=== PATIENT | female | born 1955 | race African-American/Black ===

== ENCOUNTER 2017-07-06 15:29 | Inpatient (IN) | payer MEDICAID, MEDICARE ==
[~2017-07-06] VITALS: Ht 165.1 cm; Wt 129.8 kg
[~2017-07-06 15:29] MED LIST: ATEN-42 PO; CLON0.3T PO; DICL75TA5 PO; FURO40TA5 PO; GLIM2TAB2 PO; HYDR-4134 PO; HYDR-519 PO; ISOS60TA4 PO; LOSA25TA12 PO; OMEP20TA2 PO; OXYC30TA89 PO; SIMV20TA6 PO
[2017-07-06] MEDS ORDERED: KETOROLAC 30MG/ML VIAL IV STA (16:56)
[2017-07-06 17:48] LABS: BASOPHILS % 0.9 % (0.0-2.0); EOSINOPHILS % 1.4 % (0.0-5.0); HEMATOCRIT. 30.5 % (36.0-48.0); LYMPHOCYTES % 18.5 % (20.0-50.0); MEAN CORPUSCULAR HEMOGLOBIN 28.3 pg (28.0-32.0); MEAN CORPUSCULAR VOLUME 86.7 fL (81.0-99.0); MEAN PLATELET VOLUME 8.3 fl (7.4-10.4); MONOCYTES % 7.4 % (2.0-8.0); NEUTROPHILS % 71.8 % (40.0-76.0); PLATELET 368 x1000/uL (130-400); RED BLOOD CELL COUNT 3.52 mill/uL (4.2-5.4); RED CELL DISTRIBUTION WIDTH 16.2 % (11.6-14.6)
[2017-07-06 17:51] LABS: CHLORIDE 103 mEq/L (98-107)
[2017-07-06 17:53] LABS: CARBON DIOXIDE 27 mEq/L (21-32)
[2017-07-06 17:54] LABS: PARTIAL THROMBOPLASTIN TIME 34.3 sec (23.4-31.0); PROTHROMBIN TIME 10.8 sec (9.4-11.6)
[2017-07-06 18:28] LABS: CLARITY URINE CLOUDY (CLEAR); COLOR URINE YELLOW (YELLOW); GLUCOSE URINE NEGATIVE (NEGATIVE); KETONES URINE NEGATIVE (NEGATIVE); LEUKOCYTE ESTERASE URINE NEGATIVE (NEGATIVE); NITRITE URINE NEGATIVE (NEGATIVE); OCCULT BLOOD URINE TRACE (NEGATIVE); PROTEIN URINE 3+ (NEGATIVE); SPECIFIC GRAVITY URINE 1.015 (1.005-1.030); UROBILINOGEN URINE 0.2 E.U./dL (0.2-1.0)
[2017-07-06] MEDS ORDERED: CLONIDINE 0.3MG TABLET PO ONE (19:45)
[2017-07-06] MEDS ORDERED: LISINOPRIL 40MG TABLET PO SCH (20:15)
[2017-07-06] MEDS ORDERED: ENOXAPARIN 40MG/0.4ML SYR SUBCUT SCH (20:15)
[2017-07-06] MEDS ORDERED: LORAZEPAM 2MG/ML CPJ IV PRN (20:15)
[2017-07-06] MEDS ORDERED: CLONIDINE 0.1MG TABLET PO PRN (20:15)
[2017-07-06] MEDS ORDERED: DICLOFENAC SODIUM 75MG DR (EC) TABLET PO PRN (20:15)
[2017-07-06] MEDS ORDERED: ONDANSETRON HCL 4MG/2ML VIAL IV PRN (20:15)
[2017-07-06] MEDS ORDERED: MORPHINE SULFATE 4 MG/ML CPJ (NOT FOR IM USE) IV PRN (20:15)
[2017-07-06] MEDS ORDERED: CLONIDINE 0.1MG TABLET PO ONE (20:15)
[2017-07-06] MEDS ORDERED: ACETAMINOPHEN 325MG TABLET PO PRN (20:15)
[2017-07-06] MEDS: HYDROCODONE/ACETAMINOPHEN 5/325MG TABLET PO PRN (20:22)
[2017-07-06 20:27] LABS: *AMPHETAMINES SCREEN URINE NEGATIVE (NEGATIVE); *BARBITURATES SCREEN URINE NEGATIVE (NEGATIVE); *BENZODIAZEPINES SCREEN URINE NEGATIVE (NEGATIVE); *COCAINE SCREEN URINE NEGATIVE (NEGATIVE); CANNABINOID URINE SCREEN NEGATIVE (NEGATIVE); METHADONE URINE SCREEN NEGATIVE (NEGATIVE); OPIATES URINE SCREEN PRESUMTIVE POSITIVE (NEGATIVE); PHENCYCLIDINE URINE SCREEN NEGATIVE (NEGATIVE)
[2017-07-07] VITALS (7 sets, daily range): BP systolic 158–189; BP diastolic 74–89
[2017-07-07] MEDS: ATENOLOL 50 MG TABLET PO SCH ×3 (00:48→21:24)
[2017-07-07] MEDS: ATORVASTATIN CALCIUM 20MG TABLET PO SCH ×2 (00:48→21:24)
[2017-07-07] MEDS ORDERED: LEVOFLOXACIN 500MG PREMIX 100 ML IV NR (03:00)
[2017-07-07] MEDS: CLONIDINE 0.3MG TABLET PO SCH ×3 (05:31→21:25)
[2017-07-07] MEDS: GLIMEPIRIDE 4MG TABLET PO SCH (08:26)
[2017-07-07] MEDS ORDERED: COLCHICINE 0.6MG TABLET PO SCH ×2 (09:00→16:04)
[2017-07-07] MEDS: ASPIRIN 81MG EC TABLET PO SCH (09:01)
[2017-07-07] MEDS: ISOSORBIDE MONONITRATE 60MG TABLET SR 24HR PO SCH (09:01)
[2017-07-07] MEDS: HYDRALAZINE HCL 100MG TABLET PO SCH ×2 (09:02→21:24)
[2017-07-07] MEDS: LOSARTAN POTASSIUM 50 MG TABLET PO SCH (09:02)
[2017-07-07] MEDS: ENOXAPARIN 30MG/0.3ML SYR SUBCUT SCH ×2 (09:03→21:25)
[2017-07-07] MEDS: HYDROCODONE/ACETAMINOPHEN 10/325MG TABLET PO PRN (09:10)
[2017-07-07 09:14] LABS: BASOPHILS % 0.4 % (0.0-2.0); EOSINOPHILS % 1.7 % (0.0-5.0); HEMATOCRIT. 27.2 % (36.0-48.0); HEMOGLOBIN. 8.8 g/dL (12.0-16.0); LYMPHOCYTES % 20.4 % (20.0-50.0); MEAN CORPUSCULAR VOLUME 86.5 fL (81.0-99.0); MEAN PLATELET VOLUME 7.9 fl (7.4-10.4); MONOCYTES % 9.3 % (2.0-8.0); NEUTROPHILS % 68.2 % (40.0-76.0); PLATELET 316 x1000/uL (130-400); RED BLOOD CELL COUNT 3.15 mill/uL (4.2-5.4); RED CELL DISTRIBUTION WIDTH 16.1 % (11.6-14.6)
[2017-07-07 09:28] LABS: CHLORIDE 105 mEq/L (98-107)
[2017-07-07 09:38] LABS: CARBON DIOXIDE 28 mEq/L (21-32)
[2017-07-07] MEDS: HYDROCODONE/ACETAMINOPHEN 5/325MG TABLET PO PRN (21:34)
[2017-07-07] MEDS: BLOOD SUGAR DIAGNOSTIC STRIP TEST SCH (22:58)
[2017-07-07] MEDS ORDERED: DEXTROSE 50% WATER 50ML SYRINGE IV PRN (23:00)
[2017-07-07] MEDS: INSULIN LISPRO 100 UNITS/ML SUBCUT SCH (23:02)
[2017-07-08] VITALS (9 sets, daily range): BP systolic 126–207; BP diastolic 61–88
[2017-07-08] MEDS: LEVOFLOXACIN 250MG PREMIX 50 ML IV SCH (02:06)
[2017-07-08] MEDS: HYDROCODONE/ACETAMINOPHEN 10/325MG TABLET PO PRN ×2 (03:39→21:21)
[2017-07-08] MEDS: CLONIDINE 0.3MG TABLET PO SCH ×3 (06:04→20:43)
[2017-07-08] MEDS: BLOOD SUGAR DIAGNOSTIC STRIP TEST SCH ×4 (07:14→21:57)
[2017-07-08] MEDS: INSULIN LISPRO 100 UNITS/ML SUBCUT SCH ×4 (08:10→21:23)
[2017-07-08 08:25] LABS: BG BASE EXCESS 1.2 mmol/L (-2.0-2.0); BG CARBOXYHEMOGLOBIN 0.7 % (0.5-1.5); BG DEOXYHEMOGLOBIN 4.8 % (0.0-5.0); BG FRACTION INSPIRED OXYGEN 21; BG HCO3 ACT 26.2 mmol/L (22.0-26.0); BG METHEMOGLOBIN 0.3 % (0.0-1.5); BG OXYGEN SATURATION 95.2 % (92.0-98.5); BG OXYHEMOGLOBIN 94.2 % (94.0-97.0); BG PCO2 42.9 mmHg (35.0-45.0); BG PH 7.403 (7.350-7.450); BG PO2 78.3 mmHg (75.0-100.0); BG SAMPLE SITE RIGHT RADIAL; BG TOTAL HEMOGLOBIN 9.6 g/dL (12.0-18.0); BG VENT MODE ROOM AIR
[2017-07-08] MEDS: ISOSORBIDE MONONITRATE 60MG TABLET SR 24HR PO SCH (08:52)
[2017-07-08] MEDS: GLIMEPIRIDE 4MG TABLET PO SCH (08:52)
[2017-07-08] MEDS: ATENOLOL 50 MG TABLET PO SCH ×2 (08:52→20:43)
[2017-07-08] MEDS: ASPIRIN 81MG EC TABLET PO SCH (08:53)
[2017-07-08] MEDS: LOSARTAN POTASSIUM 50 MG TABLET PO SCH (08:53)
[2017-07-08] MEDS: ENOXAPARIN 30MG/0.3ML SYR SUBCUT SCH ×2 (08:53→21:00)
[2017-07-08] MEDS: HYDRALAZINE HCL 100MG TABLET PO SCH (08:54)
[2017-07-08 09:33] LABS: BASOPHILS % 0.4 % (0.0-2.0); EOSINOPHILS % 2.4 % (0.0-5.0); HEMATOCRIT. 26.1 % (36.0-48.0); HEMOGLOBIN. 8.7 g/dL (12.0-16.0); LYMPHOCYTES % 26.6 % (20.0-50.0); MEAN CORPUSCULAR HEMOGLOBIN 28.7 pg (28.0-32.0); MEAN CORPUSCULAR VOLUME 86.6 fL (81.0-99.0); MONOCYTES % 6.4 % (2.0-8.0); NEUTROPHILS % 64.2 % (40.0-76.0); PLATELET 313 x1000/uL (130-400); RED BLOOD CELL COUNT 3.02 mill/uL (4.2-5.4); RED CELL DISTRIBUTION WIDTH 16.1 % (11.6-14.6)
[2017-07-08 09:46] LABS: CHLORIDE 106 mEq/L (98-107)
[2017-07-08 10:02] LABS: CARBON DIOXIDE 26 mEq/L (21-32)
[2017-07-08] MEDS ORDERED: DIPHENHYDRAMINE 25MG CAPSULE PO PRN (11:30)
[2017-07-08] MEDS: COLCHICINE 0.6MG TABLET PO SCH ×2 (12:50→17:56)
[2017-07-08] MEDS: HYDROCODONE/ACETAMINOPHEN 5/325MG TABLET PO PRN (12:50)
[2017-07-08] MEDS: ATORVASTATIN CALCIUM 20MG TABLET PO SCH (20:41)
[2017-07-08] MEDS: FUROSEMIDE 40MG/4ML VIAL IVP SCH (23:59)
[2017-07-08] MEDS: LISINOPRIL 40MG TABLET PO SCH (23:59)
[2017-07-09] VITALS: BP 135/66
[2017-07-09 04:00] VITALS: BP 207/93
[2017-07-09] MEDS: LEVOFLOXACIN 250MG PREMIX 50 ML IV SCH (04:15)
[2017-07-09] MEDS: HYDROCODONE/ACETAMINOPHEN 10/325MG TABLET PO PRN (04:32)
[2017-07-09] MEDS: CLONIDINE 0.3MG TABLET PO SCH ×2 (06:00→13:05)
[2017-07-09] MEDS: BLOOD SUGAR DIAGNOSTIC STRIP TEST SCH ×2 (07:26→12:40)
[2017-07-09] MEDS: INSULIN LISPRO 100 UNITS/ML SUBCUT SCH ×2 (07:47→13:10)
[2017-07-09 07:50] LABS: BASOPHILS % 0.5 % (0.0-2.0); EOSINOPHILS % 2.7 % (0.0-5.0); HEMATOCRIT. 26.4 % (36.0-48.0); HEMOGLOBIN. 8.6 g/dL (12.0-16.0); LYMPHOCYTES % 30.9 % (20.0-50.0); MEAN CORPUSCULAR HEMOGLOBIN 28.4 pg (28.0-32.0); MEAN CORPUSCULAR VOLUME 87.2 fL (81.0-99.0); MEAN PLATELET VOLUME 8.2 fl (7.4-10.4); MONOCYTES % 5.4 % (2.0-8.0); NEUTROPHILS % 60.5 % (40.0-76.0); PLATELET 344 x1000/uL (130-400); RED BLOOD CELL COUNT 3.03 mill/uL (4.2-5.4); RED CELL DISTRIBUTION WIDTH 16.2 % (11.6-14.6)
[2017-07-09 08:00] VITALS: BP 197/69
[2017-07-09] MEDS: LOSARTAN POTASSIUM 50 MG TABLET PO SCH (08:44)
[2017-07-09] MEDS: LISINOPRIL 40MG TABLET PO SCH (08:44)
[2017-07-09] MEDS: GLIMEPIRIDE 4MG TABLET PO SCH (08:44)
[2017-07-09] MEDS: ATENOLOL 50 MG TABLET PO SCH (08:44)
[2017-07-09] MEDS: ISOSORBIDE MONONITRATE 60MG TABLET SR 24HR PO SCH (08:45)
[2017-07-09] MEDS: COLCHICINE 0.6MG TABLET PO SCH ×3 (08:45→17:38)
[2017-07-09] MEDS: ASPIRIN 81MG EC TABLET PO SCH (08:45)
[2017-07-09] MEDS: ENOXAPARIN 30MG/0.3ML SYR SUBCUT SCH (08:46)
[2017-07-09] MEDS: FUROSEMIDE 40MG/4ML VIAL IVP SCH (09:48)
[2017-07-09 12:00] VITALS: BP 187/101
[2017-07-09] MEDS: HYDROCODONE/ACETAMINOPHEN 5/325MG TABLET PO PRN (13:10)
[2017-07-09 16:00] VITALS: BP 153/73
[2017-08-10] MEDS ORDERED: CLON0.1T PO (09:22)
[2017-08-10] MEDS ORDERED: ALLO100T PO (17:02)
[2017-08-10] MEDS ORDERED: ASPI-1159 PO (17:13)
[2017-08-10] MEDS ORDERED: METO2.5T14 PO (17:13)
[2017-08-10] MEDS ORDERED: CHOL100044 PO (17:13)
[2017-08-10] MEDS ORDERED: MINO2.5T19 PO (17:13)
[2017-08-10] MEDS ORDERED: SENN1TAB7 PO (17:13)
[2017-08-12] MEDS ORDERED: MINO2.5T19 PO (14:07)
[2017-08-12] MEDS ORDERED: LOSA50TA3 PO (14:07)
[2017-08-12] MEDS ORDERED: AMLO5TAB88 PO (14:07)
[2017-08-12] MEDS ORDERED: ISOS1TAB PO (14:07)
[2017-08-12] MEDS ORDERED: ATEN-42 PO (14:07)
== END 2017-07-09 17:25 | disposition home or self-care (01) | DRG 351 ==
LOC: ER 15:40 → 7WST 18:54 → SUPCPDRO 20:00 → EDBEDREQSVC 22:55 → EDBEDREQ 22:55 → EDBEDREQTM 22:55 → ENRESERV 23:14
PROVIDERS: ADMIT Internal Medicine Nephrology; ATTEND Internal Medicine Nephrology
DX: M10.9 Gout, unspecified (principal); N17.0 Acute kidney failure with tubular necrosis; E11.22 Type 2 diabetes mellitus with diabetic chronic kidney disease; I50.9 Heart failure, unspecified; I13.0 Hypertensive heart and chronic kidney disease with heart failure and stage 1 through stage 4 chronic kidney disease, or unspecified chronic kidney disease; N18.4 Chronic kidney disease, stage 4 (severe); G89.4 Chronic pain syndrome; E78.00 Pure hypercholesterolemia, unspecified; D64.9 Anemia, unspecified; N39.0 Urinary tract infection, site not specified; E66.01 Morbid (severe) obesity due to excess calories; T50.1X5A Adverse effect of loop [high-ceiling] diuretics, initial encounter; Y92.89 Other specified places as the place of occurrence of the external cause; Z88.5 Allergy status to narcotic agent; Z79.84 Long term (current) use of oral hypoglycemic drugs; Z79.891 Long term (current) use of opiate analgesic; Z79.899 Other long term (current) drug therapy; Z90.5 Acquired absence of kidney; Z85.528 Personal history of other malignant neoplasm of kidney; Z68.42 Body mass index [BMI] 45.0-49.9, adult; E44.0 Moderate protein-calorie malnutrition
CPT/HCPCS: 36415; 36600; 71010; 73610; 76770; 80048; 80053; 80305; 81001; 82375; 82805; 82962; 83605; 84550; 85025; 85610; 85730; 87040; 87086; 93005; 96374; 97116; 97162; 97530; 99285; J1650; J1815; J1885; J1940; J1956; J2405; J7030; J7050; Q0163

== ENCOUNTER 2018-04-19 15:47 | Emergency (ER) | payer MEDICAID ==
[~2018-04-19] VITALS: Ht 160 cm; Wt 110.0 kg
[~2018-04-19 15:47] MED LIST changes: +ALLO100T PO; +AMLO5TAB88 PO; +ASPI-1159 PO; +CHOL100044 PO; -DICL75TA5 PO; -FURO40TA5 PO; -HYDR-4134 PO; +ISOS1TAB PO; -ISOS60TA4 PO; -LOSA25TA12 PO; +LOSA50TA3 PO; +METO2.5T14 PO; +MINO2.5T19 PO; -OXYC30TA89 PO; +SENN1TAB7 PO
[2018-04-19] MEDS ORDERED: SODIUM CHLORIDE 0.9% 1,000 ML IV ONE (18:23)
[2018-04-19] MEDS ORDERED: ONDANSETRON HCL 4MG/2ML VIAL IV STA (18:23)
[2018-04-19] MEDS ORDERED: KETOROLAC 30MG/ML VIAL IV ONE (18:30)
[2018-04-19 19:07] LABS: BASOPHILS % 0.8 % (0.0-2.0); EOSINOPHILS % 2.7 % (0.0-5.0); HEMATOCRIT. 34.2 % (36.0-48.0); HEMOGLOBIN. 10.9 g/dL (12.0-16.0); LYMPHOCYTES % 23.8 % (20.0-50.0); MEAN CORPUSCULAR HEMOGLOBIN 29.6 pg (28.0-32.0); MEAN CORPUSCULAR VOLUME 92.6 fL (81.0-99.0); MEAN PLATELET VOLUME 7.9 fl (7.4-10.4); NEUTROPHILS % 66.7 % (40.0-76.0); PLATELET 251 x1000/uL (130-400); RED BLOOD CELL COUNT 3.69 mill/uL (4.2-5.4); RED CELL DISTRIBUTION WIDTH 17.1 % (11.6-14.6)
[2018-04-19 19:10] LABS: CHLORIDE 100 mEq/L (98-107)
[2018-04-19 19:13] LABS: INR 1.1; PROTHROMBIN TIME 11.2 sec (9.4-11.6)
[2018-04-19 20:17] LABS: CLARITY URINE TURBID (CLEAR); COLOR URINE YELLOW (YELLOW); KETONES URINE TRACE (NEGATIVE); LEUKOCYTE ESTERASE URINE 2+ (NEGATIVE); NITRITE URINE NEGATIVE (NEGATIVE); OCCULT BLOOD URINE TRACE (NEGATIVE); PROTEIN URINE 2+ (NEGATIVE); SPECIFIC GRAVITY URINE 1.019 (1.005-1.030); UROBILINOGEN URINE 0.2 E.U./dL (0.2-1.0)
[2018-04-19 21:48] VITALS: BP 135/46
== END 2018-04-19 22:02 | disposition home or self-care (01) ==
LOC: ER 15:47
DX: M54.5 Low back pain (principal); E11.9 Type 2 diabetes mellitus without complications; I10 Essential (primary) hypertension; R79.1 Abnormal coagulation profile; Z88.5 Allergy status to narcotic agent
CPT/HCPCS: 36415; 80053; 81003; 83690; 85025; 85610; 96374; 96375; 99285; J1885; J2405; J7030

== ENCOUNTER 2020-04-25 00:34 | Emergency (ER) | payer MEDICARE, OTHER, MEDICAID ==
[~2020-04-25] VITALS: Ht 162.6 cm; Wt 104.0 kg
[~2020-04-25 00:34] MED LIST changes: -ASPI-1159 PO; +ASPI-1497 PO; -GLIM2TAB2 PO; +GLIM2TAB30 PO; +SENN-251 PO; -SENN1TAB7 PO; +SIMV-43 PO; -SIMV20TA6 PO
[2020-04-25 02:23] LABS: CHLORIDE 108 mEq/L (98-107)
[2020-04-25 02:56] LABS: CLARITY URINE CLOUDY (CLEAR); COLOR URINE YELLOW (YELLOW); KETONES URINE TRACE (NEGATIVE); LEUKOCYTE ESTERASE URINE TRACE (NEGATIVE); NITRITE URINE NEGATIVE (NEGATIVE); OCCULT BLOOD URINE TRACE (NEGATIVE); PH URINE 6.5 (4.5-8.0); PROTEIN URINE 3+ (NEGATIVE)
[2020-04-25 02:58] LABS: BASOPHILS % 0.7 % (0.0-2.0); EOSINOPHILS % 4.9 % (0.0-5.0); HEMATOCRIT. 34.3 % (36.0-48.0); HEMOGLOBIN. 11.2 g/dL (12.0-16.0); LYMPHOCYTES % 16.7 % (20.0-50.0); MEAN CORPUSCULAR HEMOGLOBIN 30.4 pg (28.0-32.0); MEAN PLATELET VOLUME 7.9 fl (7.4-10.4); NEUTROPHILS % 71.7 % (40.0-76.0); PLATELET 306 x1000/uL (130-400); RED BLOOD CELL COUNT 3.69 mill/uL (4.2-5.4); RED CELL DISTRIBUTION WIDTH 18.1 % (11.6-14.6)
[2020-04-25] MEDS ORDERED: CEFTRIAXONE 1 G PREMIX 50 ML IV NR (05:30)
[2020-04-25 07:10] VITALS: BP 179/70
== END 2020-04-25 07:10 | disposition home or self-care (01) ==
LOC: ER 00:34
DX: N30.00 Acute cystitis without hematuria (principal); I12.0 Hypertensive chronic kidney disease with stage 5 chronic kidney disease or end stage renal disease; E11.22 Type 2 diabetes mellitus with diabetic chronic kidney disease; N18.6 End stage renal disease; Z88.6 Allergy status to analgesic agent; Z79.899 Other long term (current) drug therapy
CPT/HCPCS: 36415; 71045; 74176; 76700; 80053; 81003; 83690; 83880; 84484; 85025; 87086; 93005; 96365; 99285; J0696

== ENCOUNTER 2020-07-18 20:24 | Inpatient (IN) | payer MEDICARE, MEDICAID ==
[~2020-07-18] VITALS: Ht 167.6 cm; Wt 109.8 kg
[2020-07-18] MEDS ORDERED: ONDANSETRON HCL 4MG/2ML INJ IV STA (20:58)
[2020-07-18] MEDS ORDERED: CEFEPIME 1,000 MG in DEXTROSE 5% WATER 50 ML IV ONE (21:00)
[2020-07-18 22:12] LABS: HEMATOCRIT. 32.9 % (36.0-48.0); HEMOGLOBIN. 10.9 g/dL (12.0-16.0); MEAN CORPUSCULAR HEMOGLOBIN 32.1 pg (28.0-32.0); MEAN CORPUSCULAR VOLUME 96.6 fL (81.0-99.0); MEAN PLATELET VOLUME 8.1 fl (7.4-10.4); PLATELET 217 x1000/uL (130-400); RED BLOOD CELL COUNT 3.41 mill/uL (4.2-5.4); RED CELL DISTRIBUTION WIDTH 16.5 % (11.6-14.6)
[2020-07-18 22:13] LABS: CHLORIDE 104 mEq/L (98-107)
[2020-07-18 22:16] LABS: INR 1.2; PROTHROMBIN TIME 12.5 sec (9.6-11.0)
[2020-07-18] MEDS ORDERED: SODIUM CHLORIDE 0.9% 500 ML IV ONE (22:45)
[2020-07-18] MEDS ORDERED: VANCOMYCIN 1 G PREMIX 200 ML IV NR (22:45)
[2020-07-18 22:46] LABS: PLATELET ESTIMATE NORMAL
[2020-07-18] MEDS ORDERED: DEXTROSE 50% WATER 50ML SYRINGE IV ONE (23:00)
[2020-07-18] MEDS ORDERED: HYDROCODONE/ACETAMINOPHEN 5/325MG TABLET PO ONE (23:45)
[2020-07-18 23:51] LABS: CLARITY URINE CLEAR (CLEAR); COLOR URINE YELLOW (YELLOW); KETONES URINE NEGATIVE (NEGATIVE); LEUKOCYTE ESTERASE URINE NEGATIVE (NEGATIVE); NITRITE URINE NEGATIVE (NEGATIVE); OCCULT BLOOD URINE 2+ (NEGATIVE); PROTEIN URINE 3+ (NEGATIVE); UROBILINOGEN URINE 0.2 E.U./dL (0.2-1.0)
[2020-07-19] VITALS (7 sets, daily range): BP systolic 131–196; BP diastolic 44–90
[2020-07-19] MEDS ORDERED: DEXTROSE 50% WATER 50ML SYRINGE IV ONE (02:54)
[2020-07-19] MEDS: MINOXIDIL 2.5MG TABLET PO SCH (09:25)
[2020-07-19] MEDS: ACETAMINOPHEN 325MG TABLET PO PRN (09:25)
[2020-07-19] MEDS: AMLODIPINE 10MG TABLET PO SCH (09:26)
[2020-07-19] MEDS: HYDROCODONE/ACETAMINOPHEN 10/325MG TABLET PO PRN ×3 (09:26→23:55)
[2020-07-19] MEDS: ASPIRIN 81MG TABLET PO SCH (09:26)
[2020-07-19] MEDS: ALLOPURINOL 100 MG TABLET PO SCH (09:26)
[2020-07-19] MEDS: METOPROLOL TARTRATE 50MG TABLET PO SCH ×2 (09:27→22:17)
[2020-07-19] MEDS: AZITHROMYCIN 250 MG TABLET PO SCH (11:07)
[2020-07-19] MEDS: CEFTRIAXONE 1,000 MG in DEXTROSE 5% WATER 50 ML IV SCH (11:24)
[2020-07-19] MEDS ORDERED: DEXTROSE 50% WATER 50ML SYRINGE IV PRN (12:00)
[2020-07-19] MEDS ORDERED: VANCOMYCIN 1 G PREMIX 200 ML IV SCH (12:00)
[2020-07-19] MEDS: BLOOD SUGAR DIAGNOSTIC STRIP TEST SCH ×2 (12:40→21:00)
[2020-07-19] MEDS: INSULIN LISPRO 100 UNITS/ML SUBCUT SCH ×3 (13:10→21:00)
[2020-07-19] MEDS: ENOXAPARIN 40MG/0.4ML SYR SUBCUT SCH (13:29)
[2020-07-20 04:00] VITALS: BP 144/59
[2020-07-20 06:44] LABS: BASOPHILS % 0.2 % (0.0-2.0); EOSINOPHILS % 2.1 % (0.0-5.0); HEMATOCRIT. 33.9 % (36.0-48.0); HEMOGLOBIN. 10.9 g/dL (12.0-16.0); LYMPHOCYTES % 7.4 % (20.0-50.0); MEAN CORPUSCULAR HEMOGLOBIN 31.1 pg (28.0-32.0); MEAN CORPUSCULAR VOLUME 96.2 fL (81.0-99.0); MEAN PLATELET VOLUME 8.8 fl (7.4-10.4); NEUTROPHILS % 78.3 % (40.0-76.0); PLATELET 197 x1000/uL (130-400); RED BLOOD CELL COUNT 3.52 mill/uL (4.2-5.4); RED CELL DISTRIBUTION WIDTH 16.6 % (11.6-14.6)
[2020-07-20] MEDS: BLOOD SUGAR DIAGNOSTIC STRIP TEST SCH ×4 (06:51→21:11)
[2020-07-20] MEDS: HYDROCODONE/ACETAMINOPHEN 10/325MG TABLET PO PRN ×2 (06:52→20:09)
[2020-07-20] MEDS: OMEPRAZOLE 20MG CAPSULE EXTENDED RELEASE PO SCH (06:52)
[2020-07-20] MEDS: INSULIN LISPRO 100 UNITS/ML SUBCUT SCH ×5 (07:15→21:11)
[2020-07-20 08:00] VITALS: BP 144/48
[2020-07-20] MEDS: ASPIRIN 81MG TABLET PO SCH (10:45)
[2020-07-20] MEDS: MINOXIDIL 2.5MG TABLET PO SCH (10:46)
[2020-07-20] MEDS: ALLOPURINOL 100 MG TABLET PO SCH (10:46)
[2020-07-20] MEDS: METOPROLOL TARTRATE 50MG TABLET PO SCH ×2 (10:46→20:10)
[2020-07-20] MEDS: AMLODIPINE 10MG TABLET PO SCH (10:47)
[2020-07-20] MEDS: AZITHROMYCIN 250 MG TABLET PO SCH (10:47)
[2020-07-20 12:00] VITALS: BP 154/64
[2020-07-20] MEDS ORDERED: VANCOMYCIN 1 G PREMIX 200 ML IV SCH (13:00)
[2020-07-20] MEDS: ENOXAPARIN 40MG/0.4ML SYR SUBCUT SCH (13:20)
[2020-07-20] MEDS: CEFTRIAXONE 1,000 MG in DEXTROSE 5% WATER 50 ML IV SCH (13:20)
[2020-07-20] MEDS ORDERED: MORPHINE SULFATE 2 MG/ML CPJ (NOT FOR IM USE) IV NR (14:00)
[2020-07-20] MEDS: HYDROMORPHONE HCL/PF 2MG/ML CPJ IV PRN ×2 (14:56→21:27)
[2020-07-20 17:00] VITALS: BP 144/65
[2020-07-20 20:00] VITALS: BP 161/60
[2020-07-20] MEDS: ACETAMINOPHEN 325MG TABLET PO PRN (20:09)
[2020-07-21] VITALS: BP 155/53
[2020-07-21 04:00] VITALS: BP 159/73
[2020-07-21] MEDS: HYDROMORPHONE HCL/PF 2MG/ML CPJ IV PRN ×3 (05:03→22:11)
[2020-07-21] MEDS: CLONIDINE 0.1MG TABLET PO PRN (05:03)
[2020-07-21] MEDS: OMEPRAZOLE 20MG CAPSULE EXTENDED RELEASE PO SCH (06:22)
[2020-07-21] MEDS: BLOOD SUGAR DIAGNOSTIC STRIP TEST SCH ×4 (06:23→20:56)
[2020-07-21] MEDS: INSULIN LISPRO 100 UNITS/ML SUBCUT SCH ×4 (06:23→21:19)
[2020-07-21 06:48] LABS: HEMATOCRIT. 32.8 % (36.0-48.0); HEMOGLOBIN. 10.9 g/dL (12.0-16.0); MEAN CORPUSCULAR HEMOGLOBIN 31.5 pg (28.0-32.0); MEAN CORPUSCULAR VOLUME 95.2 fL (81.0-99.0); MEAN PLATELET VOLUME 8.4 fl (7.4-10.4); PLATELET 220 x1000/uL (130-400); RED BLOOD CELL COUNT 3.44 mill/uL (4.2-5.4); RED CELL DISTRIBUTION WIDTH 16.6 % (11.6-14.6)
[2020-07-21 06:53] LABS: CHLORIDE 100 mEq/L (98-107)
[2020-07-21 07:03] LABS: PHOSPHORUS 5.3 mg/dL (2.5-4.9)
[2020-07-21 07:30] LABS: C REACTIVE PROTEIN QUANT > 480.0 mg/L (0.0-3.0)
[2020-07-21 08:00] VITALS: BP 140/42
[2020-07-21] MEDS: METOPROLOL TARTRATE 50MG TABLET PO SCH ×2 (08:36→20:09)
[2020-07-21] MEDS: AMLODIPINE 10MG TABLET PO SCH (08:36)
[2020-07-21] MEDS: MINOXIDIL 2.5MG TABLET PO SCH (08:37)
[2020-07-21] MEDS: ASPIRIN 81MG TABLET PO SCH (08:37)
[2020-07-21] MEDS: ALLOPURINOL 100 MG TABLET PO SCH (08:37)
[2020-07-21] MEDS: HYDROCODONE/ACETAMINOPHEN 10/325MG TABLET PO PRN ×2 (09:24→20:09)
[2020-07-21 10:45] LABS: PLATELET ESTIMATE NORMAL
[2020-07-21 12:00] VITALS: BP 153/64
[2020-07-21] MEDS: DIPHENHYDRAMINE 25MG CAPSULE PO PRN (12:18)
[2020-07-21] MEDS: ENOXAPARIN 40MG/0.4ML SYR SUBCUT SCH (12:24)
[2020-07-21] MEDS ORDERED: SODIUM BICARBONATE 4% (2.4MEQ) 5ML VIAL IV ONE (14:54)
[2020-07-21] MEDS ORDERED: LIDOCAINE HCL 1% 20ML VIAL (Pyxis) INJ ONE (14:55)
[2020-07-21 16:00] VITALS: BP 128/57
[2020-07-21] MEDS ORDERED: VANCOMYCIN 1 G PREMIX 200 ML IV SCH (17:00)
[2020-07-21 20:00] VITALS: BP 173/52
[2020-07-22] VITALS (7 sets, daily range): BP systolic 111–194; BP diastolic 52–71
[2020-07-22] MEDS: CLONIDINE 0.1MG TABLET PO PRN ×2 (02:22→16:20)
[2020-07-22] MEDS: HYDROMORPHONE HCL/PF 2MG/ML CPJ IV PRN ×3 (04:49→17:13)
[2020-07-22 06:20] LABS: BASOPHILS % 0.5 % (0.0-2.0); EOSINOPHILS % 3.3 % (0.0-5.0); HEMATOCRIT. 32.9 % (36.0-48.0); HEMOGLOBIN. 10.7 g/dL (12.0-16.0); MEAN CORPUSCULAR HEMOGLOBIN 31.4 pg (28.0-32.0); MEAN CORPUSCULAR VOLUME 96.2 fL (81.0-99.0); MEAN PLATELET VOLUME 8.4 fl (7.4-10.4); MONOCYTES % 14.5 % (2.0-8.0); NEUTROPHILS % 60.7 % (40.0-76.0); PLATELET 249 x1000/uL (130-400); RED BLOOD CELL COUNT 3.42 mill/uL (4.2-5.4); RED CELL DISTRIBUTION WIDTH 16.6 % (11.6-14.6)
[2020-07-22] MEDS: BLOOD SUGAR DIAGNOSTIC STRIP TEST SCH ×4 (06:33→20:50)
[2020-07-22] MEDS: INSULIN LISPRO 100 UNITS/ML SUBCUT SCH ×4 (06:43→20:50)
[2020-07-22 07:06] LABS: PHOSPHORUS 4.5 mg/dL (2.5-4.9)
[2020-07-22] MEDS: FAMOTIDINE 20MG TABLET PO SCH (08:40)
[2020-07-22] MEDS: MINOXIDIL 2.5MG TABLET PO SCH (08:41)
[2020-07-22] MEDS: ALLOPURINOL 100 MG TABLET PO SCH (08:41)
[2020-07-22] MEDS: AMLODIPINE 10MG TABLET PO SCH (08:41)
[2020-07-22] MEDS: METOPROLOL TARTRATE 50MG TABLET PO SCH ×2 (08:41→20:51)
[2020-07-22] MEDS: HYDROCODONE/ACETAMINOPHEN 10/325MG TABLET PO PRN ×3 (08:42→22:12)
[2020-07-22] MEDS ORDERED: VANCOMYCIN 1 G PREMIX 200 ML IV SCH (11:30)
[2020-07-22] MEDS ORDERED: BISACODYL 10MG SUPP PR PRN (12:45)
[2020-07-22] MEDS ORDERED: ONDANSETRON HCL 4MG/2ML INJ IV PRN (12:45)
[2020-07-23] VITALS (7 sets, daily range): BP systolic 105–191; BP diastolic 55–75
[2020-07-23] MEDS: HYDROMORPHONE HCL/PF 2MG/ML CPJ IV PRN ×4 (00:22→21:33)
[2020-07-23] MEDS: HYDROCODONE/ACETAMINOPHEN 10/325MG TABLET PO PRN ×2 (05:02→11:07)
[2020-07-23] MEDS: CLONIDINE 0.1MG TABLET PO PRN (06:46)
[2020-07-23] MEDS: BLOOD SUGAR DIAGNOSTIC STRIP TEST SCH ×4 (06:46→21:43)
[2020-07-23] MEDS: INSULIN LISPRO 100 UNITS/ML SUBCUT SCH ×4 (06:48→21:43)
[2020-07-23] MEDS: AMLODIPINE 10MG TABLET PO SCH (08:40)
[2020-07-23] MEDS: ALLOPURINOL 100 MG TABLET PO SCH (08:41)
[2020-07-23] MEDS: METOPROLOL TARTRATE 50MG TABLET PO SCH ×2 (08:41→21:33)
[2020-07-23] MEDS: MINOXIDIL 2.5MG TABLET PO SCH (08:41)
[2020-07-23] MEDS: FAMOTIDINE 20MG TABLET PO SCH (08:41)
[2020-07-23] MEDS: DIPHENHYDRAMINE 25MG CAPSULE PO PRN (09:24)
[2020-07-23 10:02] LABS: INR 1.1; PROTHROMBIN TIME 11.2 sec (9.6-11.0)
[2020-07-23 10:03] LABS: BASOPHILS % 0.7 % (0.0-2.0); EOSINOPHILS % 2.7 % (0.0-5.0); HEMATOCRIT. 32.5 % (36.0-48.0); HEMOGLOBIN. 10.4 g/dL (12.0-16.0); LYMPHOCYTES % 17.2 % (20.0-50.0); MEAN CORPUSCULAR HEMOGLOBIN 31.2 pg (28.0-32.0); MEAN CORPUSCULAR VOLUME 97.2 fL (81.0-99.0); MEAN PLATELET VOLUME 8.8 fl (7.4-10.4); MONOCYTES % 11.7 % (2.0-8.0); NEUTROPHILS % 67.7 % (40.0-76.0); PLATELET 273 x1000/uL (130-400); RED BLOOD CELL COUNT 3.34 mill/uL (4.2-5.4); RED CELL DISTRIBUTION WIDTH 16.9 % (11.6-14.6)
[2020-07-23 10:09] LABS: PHOSPHORUS 5.6 mg/dL (2.5-4.9)
[2020-07-23] MEDS ORDERED: HYDROCODONE/ACETAMINOPHEN 10/325MG TABLET PO PRN (14:00)
[2020-07-23] MEDS ORDERED: MINOXIDIL 2.5MG TABLET PO SCH (21:00)
[2020-07-24] VITALS: BP 210/75
[2020-07-24] MEDS: CLONIDINE 0.1MG TABLET PO PRN (00:47)
[2020-07-24] MEDS: BLOOD SUGAR DIAGNOSTIC STRIP TEST SCH (05:57)
[2020-07-24 08:00] VITALS: BP_SYST 164; BP_SYST 216; BP_DIAS 67; BP_DIAS 72
== END 2020-07-24 09:30 | disposition home or self-care (01) | DRG 314 ==
LOC: ER 20:24 → 7WST 23:25 → EDBEDREQSVC 23:52 → EDBEDREQ 23:52 → EDBEDREQTM 23:52 → ENRESERV 07-19 02:41 → 5WST 07-19 17:11
PROVIDERS: ADMIT Internal Medicine; ATTEND Internal Medicine
PROC: 5A1D70Z Performance of Urinary Filtration, Intermittent, Less than 6 Hours Per Day (ICD-10-PCS; principal; 2020-07-19)
PROC: 5A1D70Z Performance of Urinary Filtration, Intermittent, Less than 6 Hours Per Day (ICD-10-PCS; 2020-07-20)
PROC: 5A1D70Z Performance of Urinary Filtration, Intermittent, Less than 6 Hours Per Day (ICD-10-PCS; 2020-07-21)
PROC: 5A1D70Z Performance of Urinary Filtration, Intermittent, Less than 6 Hours Per Day (ICD-10-PCS; 2020-07-23)
PROC: 05PY33Z Removal of Infusion Device from Upper Vein, Percutaneous Approach (ICD-10-PCS; 2020-07-23)
DX: T80.211A Bloodstream infection due to central venous catheter, initial encounter (principal); A41.02 Sepsis due to Methicillin resistant Staphylococcus aureus; N18.6 End stage renal disease; J96.01 Acute respiratory failure with hypoxia; R65.20 Severe sepsis without septic shock; I13.2 Hypertensive heart and chronic kidney disease with heart failure and with stage 5 chronic kidney disease, or end stage renal disease; G82.20 Paraplegia, unspecified; I50.32 Chronic diastolic (congestive) heart failure; E44.0 Moderate protein-calorie malnutrition; E11.22 Type 2 diabetes mellitus with diabetic chronic kidney disease; E11.649 Type 2 diabetes mellitus with hypoglycemia without coma; E66.9 Obesity, unspecified; D64.9 Anemia, unspecified; D72.810 Lymphocytopenia; E78.00 Pure hypercholesterolemia, unspecified; E78.5 Hyperlipidemia, unspecified; E83.52 Hypercalcemia; K21.9 Gastro-esophageal reflux disease without esophagitis; M10.9 Gout, unspecified; M47.816 Spondylosis without myelopathy or radiculopathy, lumbar region; M48.061 Spinal stenosis, lumbar region without neurogenic claudication; Y84.8 Other medical procedures as the cause of abnormal reaction of the patient, or of later complication, without mention of misadventure at the time of the procedure; Z20.828 Contact with and (suspected) exposure to other viral communicable diseases; Z82.49 Family history of ischemic heart disease and other diseases of the circulatory system; Z83.3 Family history of diabetes mellitus; Z99.2 Dependence on renal dialysis; Z90.5 Acquired absence of kidney; Z88.5 Allergy status to narcotic agent; Z88.8 Allergy status to other drugs, medicaments and biological substances; Z79.899 Other long term (current) drug therapy; Z79.891 Long term (current) use of opiate analgesic; Z68.39 Body mass index [BMI] 39.0-39.9, adult
CPT/HCPCS: 36415; 36589; 71045; 72141; 72148; 80048; 80053; 80202; 81003; 82962; 83036; 83605; 83735; 84100; 84145; 84484; 85025; 85651; 86140; 87077; 87635; 93005; 93306; 93970; 97162; 99291; J0692; J0696; J1170; J1650; J1815; J2405; J3370; J3490; J7060; Q0163

== ENCOUNTER 2021-10-26 09:08 | Inpatient (IN) | payer MEDICARE, MEDICAID ==
[~2021-10-26] VITALS: Ht 162.6 cm; Wt 104.8 kg
[~2021-10-26 09:08] MED LIST changes: -METO2.5T14 PO; +METO2.5T2 PO
[2021-10-26] MEDS ORDERED: HALOPERIDOL LACTATE 5MG/ML VIAL IM ONE (10:00)
[2021-10-26 10:01] LABS: BG BASE EXCESS -2.8 mmol/L (-2.0-2.0); BG CARBOXYHEMOGLOBIN 0.5 % (0.5-1.5); BG HCO3 ACT 22.7 mmol/L (22.0-26.0); BG OXYHEMOGLOBIN 90.5 % (94.0-97.0); BG PCO2 42.2 mmHg (35.0-45.0); BG PH 7.348 (7.350-7.450); BG SAMPLE SITE RIGHT BRACHIAL; BG TOTAL HEMOGLOBIN 11.7 g/dL (12.0-18.0); BG VENT MODE ROOM AIR
[2021-10-26] MEDS ORDERED: FUROSEMIDE 40MG/4ML VIAL IVP ONE (13:00)
[2021-10-26] MEDS ORDERED: ENALAPRIL 2.5MG/2ML VIAL 2ML IV ONE (13:00)
[2021-10-26 13:04] LABS: CLARITY URINE CLEAR (CLEAR); COLOR URINE YELLOW (YELLOW); KETONES URINE TRACE (NEGATIVE); LEUKOCYTE ESTERASE URINE NEGATIVE (NEGATIVE); NITRITE URINE NEGATIVE (NEGATIVE); OCCULT BLOOD URINE TRACE (NEGATIVE); PH URINE 7.5 (4.5-8.0); PROTEIN URINE 3+ (NEGATIVE); SPECIFIC GRAVITY URINE 1.016 (1.005-1.030); UROBILINOGEN URINE 0.2 E.U./dL (0.2-1.0)
[2021-10-26] MEDS ORDERED: ENALAPRIL 1.25MG/ML VIAL 1ML IV ONE (13:15)
[2021-10-26 13:26] LABS: *BARBITURATES SCREEN URINE NEGATIVE (NEGATIVE)
[2021-10-26 13:27] LABS: *AMPHETAMINES SCREEN URINE NEGATIVE (NEGATIVE); *COCAINE SCREEN URINE NEGATIVE (NEGATIVE); OPIATES URINE SCREEN PRESUMTIVE POSITIVE (NEGATIVE)
[2021-10-26 13:28] LABS: *BENZODIAZEPINES SCREEN URINE NEGATIVE (NEGATIVE); CANNABINOID URINE SCREEN NEGATIVE (NEGATIVE); METHADONE URINE SCREEN NEGATIVE (NEGATIVE); PHENCYCLIDINE URINE SCREEN NEGATIVE (NEGATIVE)
[2021-10-26 13:30] LABS: BASOPHILS % 0.4 % (0.0-2.0); EOSINOPHILS % 0.6 % (0.0-5.0); HEMATOCRIT. 35.8 % (36.0-48.0); HEMOGLOBIN. 11.1 g/dL (12.0-16.0); LYMPHOCYTES % 13.4 % (20.0-50.0); MEAN CORPUSCULAR HEMOGLOBIN 30.5 pg (28.0-32.0); MEAN CORPUSCULAR VOLUME 98.2 fL (81.0-99.0); MEAN PLATELET VOLUME 7.3 fl (7.4-10.4); MONOCYTES % 6.1 % (2.0-8.0); NEUTROPHILS % 79.5 % (40.0-76.0); PLATELET 444 x1000/uL (130-400); RED BLOOD CELL COUNT 3.64 mill/uL (4.2-5.4); RED CELL DISTRIBUTION WIDTH 16.1 % (11.6-14.6)
[2021-10-26 13:40] LABS: CHLORIDE 110 mEq/L (98-107)
[2021-10-26 13:50] LABS: CREATINE KINASE 245 IU/L (26-192)
[2021-10-26 13:58] LABS: ETHANOL BLOOD < 10 mg/dL
[2021-10-26] MEDS ORDERED: HYDRALAZINE 20MG/ML VIAL IV ONE (15:45)
[2021-10-26] MEDS ORDERED: ONDANSETRON HCL 4MG/2ML INJ IV PRN (20:00)
[2021-10-26] MEDS ORDERED: LABETALOL 5MG/ML SYR 20 MG/4 ML SYRINGE IV NR ×2 (20:00→20:30)
[2021-10-26] MEDS ORDERED: ACETAMINOPHEN 325MG TABLET PO PRN ×3 (20:00→20:30)
[2021-10-26] MEDS ORDERED: ZOLPIDEM TARTRATE 5MG TABLET PO PRN (20:00)
[2021-10-26] MEDS ORDERED: CLONIDINE 0.1MG TABLET PO PRN (20:00)
[2021-10-26 20:32] LABS: HEPATITIS B SURFACE ANTIGEN NEGATIVE
[2021-10-26] MEDS ORDERED: LABETALOL HCL VIAL 20 MG/4 ML VIAL IV NR ×2 (20:45→22:30)
[2021-10-26] MEDS: SODIUM CHLORIDE 0.9% INJ 3ML FLUSH IVF SCH (22:00)
[2021-10-26] MEDS: METOPROLOL TARTRATE 50MG TABLET PO SCH (22:44)
[2021-10-27] MEDS: SODIUM CHLORIDE 0.9% INJ 3ML FLUSH IVF SCH ×3 (06:00→20:47)
[2021-10-27] MEDS: AMLODIPINE 10MG TABLET PO SCH (08:10)
[2021-10-27] MEDS ORDERED: MINOXIDIL 2.5MG TABLET PO SCH (09:00)
[2021-10-27] MEDS: METOPROLOL TARTRATE 50MG TABLET PO SCH ×2 (10:36→20:47)
[2021-10-27 11:00] VITALS: BP 172/69
[2021-10-27 12:00] VITALS: BP 236/99
[2021-10-27] MEDS ORDERED: LORAZEPAM 2MG/ML CPJ IV NR (12:15)
[2021-10-27] MEDS: ALLOPURINOL 100 MG TABLET PO SCH (12:32)
[2021-10-27] MEDS: ASPIRIN 81MG EC TABLET PO SCH (12:32)
[2021-10-27] MEDS: HYDRALAZINE 20MG/ML VIAL IV PRN ×2 (12:38→20:46)
[2021-10-27] MEDS ORDERED: HALOPERIDOL LACTATE 5MG/ML VIAL IM PRN (14:15)
[2021-10-27] MEDS ORDERED: LORAZEPAM 2MG/ML CPJ IM NR (14:15)
[2021-10-27] MEDS ORDERED: *PATIENT'S OWN MEDICATION STORAGE XX SCH (15:15)
[2021-10-27] MEDS ORDERED: CLONIDINE HCL 0.2MG/24HR PATCH TD SCH (15:30)
[2021-10-27 16:00] VITALS: BP 235/149
[2021-10-27] MEDS ORDERED: HALOPERIDOL LACTATE 5MG/ML VIAL IM NR (16:30)
[2021-10-27] MEDS ORDERED: HYDRALAZINE 20MG/ML VIAL IV NR (17:00)
[2021-10-27] MEDS ORDERED: LABETALOL HCL VIAL 20 MG/4 ML VIAL IV NR (18:30)
[2021-10-27 20:00] VITALS: BP 129/81
[2021-10-27] MEDS: DIPHENHYDRAMINE 50MG/ML VIAL IV PRN (20:49)
[2021-10-27 21:45] VITALS: BP 195/147
[2021-10-28] VITALS (11 sets, daily range): BP systolic 121–166; BP diastolic 48–129
[2021-10-28] MEDS ORDERED: HYDRALAZINE 20MG/ML VIAL IV PRN (01:00)
[2021-10-28] MEDS ORDERED: LABETALOL HCL VIAL 20 MG/4 ML VIAL IV PRN (01:00)
[2021-10-28] MEDS: DIPHENHYDRAMINE 50MG/ML VIAL IV PRN (01:54)
[2021-10-28 07:25] LABS: PHOSPHORUS 3.6 mg/dL (2.5-4.9)
[2021-10-28] MEDS: METOPROLOL TARTRATE 50MG TABLET PO SCH ×2 (08:09→21:05)
[2021-10-28] MEDS: AMLODIPINE 10MG TABLET PO SCH (08:10)
[2021-10-28] MEDS: LOSARTAN POTASSIUM 50 MG TABLET PO SCH (08:10)
[2021-10-28] MEDS: ASPIRIN 81MG EC TABLET PO SCH (08:10)
[2021-10-28] MEDS: ALLOPURINOL 100 MG TABLET PO SCH (08:19)
[2021-10-28] MEDS: SODIUM CHLORIDE 0.9% INJ 3ML FLUSH IVF SCH ×3 (08:19→21:05)
[2021-10-28] MEDS ORDERED: MINOXIDIL 2.5MG TABLET PO SCH (09:00)
[2021-10-28 12:33] LABS: BASOPHILS % 1.2 % (0.0-2.0); EOSINOPHILS % 1.8 % (0.0-5.0); HEMATOCRIT. 32.3 % (36.0-48.0); HEMOGLOBIN. 10.5 g/dL (12.0-16.0); LYMPHOCYTES % 15.6 % (20.0-50.0); MEAN CORPUSCULAR HEMOGLOBIN 31.1 pg (28.0-32.0); MEAN PLATELET VOLUME 7.6 fl (7.4-10.4); MONOCYTES % 8.3 % (2.0-8.0); NEUTROPHILS % 73.1 % (40.0-76.0); PLATELET 417 x1000/uL (130-400); RED BLOOD CELL COUNT 3.37 mill/uL (4.2-5.4); RED CELL DISTRIBUTION WIDTH 16.5 % (11.6-14.6)
[2021-10-28 12:51] LABS: MEAN CORPUSCULAR VOLUME 95.7 fL (81.0-99.0)
[2021-10-28] MEDS: MINOXIDIL 10MG TABLET PO SCH (16:20)
[2021-10-29] VITALS (9 sets, daily range): BP systolic 121–146; BP diastolic 49–64
[2021-10-29] MEDS: SODIUM CHLORIDE 0.9% INJ 3ML FLUSH IVF SCH ×3 (05:50→21:59)
[2021-10-29 06:55] LABS: BASOPHILS % 0.4 % (0.0-2.0); EOSINOPHILS % 2.2 % (0.0-5.0); HEMATOCRIT. 33.1 % (36.0-48.0); HEMOGLOBIN. 10.3 g/dL (12.0-16.0); LYMPHOCYTES % 17.2 % (20.0-50.0); MEAN CORPUSCULAR HEMOGLOBIN 30.1 pg (28.0-32.0); MEAN CORPUSCULAR VOLUME 96.7 fL (81.0-99.0); MEAN PLATELET VOLUME 7.7 fl (7.4-10.4); MONOCYTES % 6.7 % (2.0-8.0); NEUTROPHILS % 73.5 % (40.0-76.0); PLATELET 399 x1000/uL (130-400); RED BLOOD CELL COUNT 3.42 mill/uL (4.2-5.4); RED CELL DISTRIBUTION WIDTH 16.8 % (11.6-14.6)
[2021-10-29 07:52] LABS: PHOSPHORUS 4.6 mg/dL (2.5-4.9)
[2021-10-29] MEDS: MINOXIDIL 10MG TABLET PO SCH ×2 (09:35→17:48)
[2021-10-29] MEDS: ALLOPURINOL 100 MG TABLET PO SCH (09:35)
[2021-10-29] MEDS: METOPROLOL TARTRATE 50MG TABLET PO SCH ×2 (09:36→21:59)
[2021-10-29] MEDS: ASPIRIN 81MG EC TABLET PO SCH (09:36)
[2021-10-29] MEDS: LOSARTAN POTASSIUM 50 MG TABLET PO SCH (09:36)
[2021-10-29] MEDS: AMLODIPINE 10MG TABLET PO SCH (09:36)
[2021-10-29] MEDS: ENOXAPARIN 40MG/0.4ML SYR SUBCUT SCH (12:13)
[2021-10-30] VITALS (14 sets, daily range): BP systolic 53–129; BP diastolic 38–64
[2021-10-30] MEDS: SODIUM CHLORIDE 0.9% INJ 3ML FLUSH IVF SCH ×2 (05:32→14:13)
[2021-10-30 05:46] LABS: PHOSPHORUS 6.3 mg/dL (2.5-4.9)
[2021-10-30 06:29] LABS: BASOPHILS % 0.3 % (0.0-2.0); EOSINOPHILS % 1.7 % (0.0-5.0); HEMATOCRIT. 32.5 % (36.0-48.0); HEMOGLOBIN. 10.1 g/dL (12.0-16.0); LYMPHOCYTES % 13.9 % (20.0-50.0); MEAN CORPUSCULAR HEMOGLOBIN 30.5 pg (28.0-32.0); MEAN PLATELET VOLUME 8.1 fl (7.4-10.4); MONOCYTES % 8.7 % (2.0-8.0); NEUTROPHILS % 75.4 % (40.0-76.0); PLATELET 395 x1000/uL (130-400); RED BLOOD CELL COUNT 3.31 mill/uL (4.2-5.4); RED CELL DISTRIBUTION WIDTH 16.3 % (11.6-14.6)
[2021-10-30] MEDS ORDERED: CALCIUM CHLORIDE 1GM/10ML SYR IV ONE (08:00)
[2021-10-30] MEDS ORDERED: DEXTROSE 50% WATER 50ML SYRINGE IV ONE (08:00)
[2021-10-30] MEDS ORDERED: EPINEPHRINE 0.1MG/ML (1:10,000) 10ML SYR ONE ×2 (08:00→09:55)
[2021-10-30] MEDS ORDERED: MAGNESIUM SULFATE 4G IN WATER 100ML PREMIX IV ONE (08:00)
[2021-10-30] MEDS ORDERED: SODIUM BICARBONATE 8.4% 1 MEQ/ML 50ML SYR IV ONE ×2 (08:00→09:55)
[2021-10-30] MEDS ORDERED: AMIODARONE HCL 50MG/ML 3ML VIAL IV ONE (08:00)
[2021-10-30] MEDS: ASPIRIN 81MG EC TABLET PO SCH (08:29)
[2021-10-30] MEDS: AMLODIPINE 10MG TABLET PO SCH (08:29)
[2021-10-30] MEDS: LOSARTAN POTASSIUM 50 MG TABLET PO SCH (09:00)
[2021-10-30] MEDS: METOPROLOL TARTRATE 50MG TABLET PO SCH (09:00)
[2021-10-30] MEDS: MINOXIDIL 10MG TABLET PO SCH (09:00)
[2021-10-30] MEDS ORDERED: DOPAMINE 400MG/250ML PREMIX 250 ML IV ONE ×2 (11:07→15:13)
[2021-10-30] MEDS ORDERED: PHENYLEPHRINE 100 MG in DEXT 5% WATER 240 ML IV PRN (12:00)
[2021-10-30 12:18] LABS: BG BASE EXCESS -5.8 mmol/L (-2.0-2.0); BG FRACTION INSPIRED OXYGEN 100; BG HCO3 ACT 22.5 mmol/L (22.0-26.0); BG METHEMOGLOBIN 0.3 % (0.0-1.5); BG OXYHEMOGLOBIN 98.7 % (94.0-97.0); BG PCO2 57.9 mmHg (35.0-45.0); BG PH 7.208 (7.350-7.450); BG PO2 219.3 mmHg (75.0-100.0); BG SAMPLE SITE LEFT BRACHIAL; BG TOTAL HEMOGLOBIN 11.4 g/dL (12.0-18.0); BG VENT MODE VENT - AC/VC
[2021-10-30] MEDS: EPINEPHRINE 10 MG in SODIUM CHLORIDE 0.9% 240 ML IV PRN ×2 (13:21→14:12)
[2021-10-30] MEDS ORDERED: VASOPRESSIN 20 UNIT in SODIUM CHLORIDE 0.9% 99 ML IV PRN (13:30)
[2021-10-30] MEDS ORDERED: NOREPINEPHRINE 32 MG in DEXT 5% WATER 218 ML IV PRN (13:30)
[2021-10-30] MEDS: ENOXAPARIN 40MG/0.4ML SYR SUBCUT SCH (13:53)
[2021-10-30] MEDS ORDERED: PIPERACILLIN/TAZOBACTAM 3.375 G in DEXTROSE 5% WATER 50 ML IV SCH (14:00)
[2021-10-30] MEDS ORDERED: DOPAMINE 400MG/250ML PREMIX 250 ML IV PRN (14:30)
[2021-10-30] MEDS ORDERED: VANCOMYCIN 1500MG in DEXTROSE 5% WATER 250ML IV NR (14:30)
== END 2021-10-30 15:26 | DRG 70 ==
LOC: ER 09:08 → 3WST 13:07 → ENRESERV 19:07 → 8WST 10-27 11:01 → 5EST 10-27 21:55 → MICUSO 10-30 12:24
PROVIDERS: ADMIT Internal Medicine; ATTEND Internal Medicine
PROC: 5A1D70Z Performance of Urinary Filtration, Intermittent, Less than 6 Hours Per Day (ICD-10-PCS; 2021-10-26)
PROC: 5A09357 Assistance with Respiratory Ventilation, Less than 24 Consecutive Hours, Continuous Positive Airway Pressure (ICD-10-PCS; 2021-10-26)
PROC: 5A12012 Performance of Cardiac Output, Single, Manual (ICD-10-PCS; principal; 2021-10-30)
PROC: 5A2204Z Restoration of Cardiac Rhythm, Single (ICD-10-PCS; 2021-10-30)
PROC: 5A1D70Z Performance of Urinary Filtration, Intermittent, Less than 6 Hours Per Day (ICD-10-PCS; 2021-10-30)
PROC: 0BH17EZ Insertion of Endotracheal Airway into Trachea, Via Natural or Artificial Opening (ICD-10-PCS; 2021-10-30)
PROC: 5A1935Z Respiratory Ventilation, Less than 24 Consecutive Hours (ICD-10-PCS; 2021-10-30)
DX: G93.41 Metabolic encephalopathy (principal); N18.6 End stage renal disease; I50.33 Acute on chronic diastolic (congestive) heart failure; J69.0 Pneumonitis due to inhalation of food and vomit; J96.01 Acute respiratory failure with hypoxia; I13.2 Hypertensive heart and chronic kidney disease with heart failure and with stage 5 chronic kidney disease, or end stage renal disease; E44.0 Moderate protein-calorie malnutrition; F23 Brief psychotic disorder; G93.1 Anoxic brain damage, not elsewhere classified; E11.22 Type 2 diabetes mellitus with diabetic chronic kidney disease; E78.5 Hyperlipidemia, unspecified; I16.0 Hypertensive urgency; I27.20 Pulmonary hypertension, unspecified; M10.9 Gout, unspecified; E78.00 Pure hypercholesterolemia, unspecified; I46.9 Cardiac arrest, cause unspecified; Z20.822 Contact with and (suspected) exposure to COVID-19; Z82.49 Family history of ischemic heart disease and other diseases of the circulatory system; Z86.14 Personal history of Methicillin resistant Staphylococcus aureus infection; Z99.2 Dependence on renal dialysis; Z88.6 Allergy status to analgesic agent; Z88.5 Allergy status to narcotic agent; Z79.899 Other long term (current) drug therapy; Z79.82 Long term (current) use of aspirin; Z79.891 Long term (current) use of opiate analgesic; Z68.39 Body mass index [BMI] 39.0-39.9, adult
CPT/HCPCS: 36415; 36600; 71045; 80048; 80053; 80305; 80320; 81003; 82140; 82375; 82550; 82805; 82962; 83735; 84100; 84443; 85025; 86705; 86709; 86803; 87340; 87426; 87804; 92950; 93005; 93306; 94003; 99291; C1893; J0282; J0360; J1200; J1265; J1630; J1650; J1940; J2060; J2405; J2543; J3370; J3475; J3490; J7040; J7050; J7060; A4315; G0480